=== PATIENT | female | born 1975 | race Caucasian/White ===

== ENCOUNTER 2016-08-04 16:13 | Emergency (ER) | payer MEDICAID ==
[2016-08-04 16:29] VITALS: BP 124/71; PULSE 76; RESP 14; TEMP 98.1; O2SAT 98
--- NOTE | 2016-08-04 17:25 | UCPHY ---
H & P Time Seen by Provider: 08/04/16 17:07 Patient Type: Established HPI/ROS: This patient complains of left knee pain that feels similar to pain she had with patellar subluxation in the past although she did have any acute trauma this time. She did have 2 prior surgeries for patellar subluxation on that knee , the most recent by Dr. Hermosillo in 2000. She explains that yesterday while walking doing some shopping she just started having spontaneous onset of anterior knee pain primarily to the lateral aspect of the patellar region. This increased through the day and today she notes more swelling to the area and more pain with a feeling of potential patellar subluxation or partial subluxation while walking. She had partial relief from hydrocodone that she has at home for chronic back pain and notes no other exacerbating or alleviating factors. Peak intensity 8/10, currently moderate intensity. ROS: No fevers or chills. No other constitutional symptoms. She reports no feeling of gross knee instability. Again no acute trauma. She has mild swelling in the affected left leg but no posterior calf pain. Cardiovascular: No lightheadedness or heart palpitations. 7 point ROS is otherwise negative. Smoking Status: Never smoked Physical Exam: Physical Exam Vital signs are normal. General: No acute distress Eyes: Pupils equal and react to light. Extraocular motions are intact. Lungs: No respiratory distress. Cardiac: Brisk capillary refill is intact throughout. Pulses are 2+ and symmetric in the affected extremity. Skin: No rash or pallor. Extremities: Atraumatic normal except for left knee Left knee: Patient has mild prepatellar swelling that extends to the area just superior of the patella. She has positive patellar anxiety with manual lateral displacement of the patella. No significant posterior, lateral or medial knee tenderness. Ofelia's is negative for pain or instability. Varus and valgus stress with no laxity or increasing pain. There is no warmth to touch. No redness. Her surgical scar is clean dry and intact. Neuro: Alert and oriented x3 with no sensorimotor deficits. Constitutional: Initial Vital Signs Temperature (C) 36.7 C 08/04/16 16:27 Heart Rate 76 08/04/16 16:27 Respiratory Rate 14 08/04/16 16:27 Blood Pressure 124/71 H 08/04/16 16:27 O2 Sat (%) 98 08/04/16 16:27 O2 Delivery Mode Room Air Allergies/Adverse Reactions: latex [Latex] Allergy (Verified 12/12/13 10:53) morphine Allergy (Verified 12/12/13 10:53) Home Medications: Medication Instructions Recorded LORazepam [Ativan] 0.5 mg PO 04/23/11 Lortab 7.5-325 mg Tablet 12/12/13 MDM/Departure - [facility] ED Course/Re-evaluation: This patient's exam and history are most consistent with patellar subluxation and I counseled her regarding this. She does not have a joint effusion I do not think this is a ligamentous or bony problem and I do not think she has infectious process. I counseled regarding this. She is placed in a neoprene knee splint. She will follow up with Dr. Hermosillo. 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 Hermosillo for further evaluation. Consider cane or crutches until symptoms improve. Referrals: Snow Burnette MD [Primary Care Provider] - As per Instructions Payton Hermosillo MD [Medical Doctor] - As per Instructions - PQRS PQRS Measurement: NA
== END 2016-08-04 17:50 | disposition home or self-care (01) ==
LOC: CED 16:13
DX: M22.12 Recurrent subluxation of patella, left knee (principal)
CPT/HCPCS: 99213-PO; G0463-PO; L1830